=== PATIENT | female | born 1980 | race Two or more races ===

== ENCOUNTER 2024-12-01 14:47 | Emergency (ER) | payer MEDICAID, SELFPAY ==
--- NOTE | 2024-12-01 14:48 | EKG_ITS ---
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
--- NOTE | 2024-12-01 14:48 | XR_ITS ---
Examination: PA chest single view TECHNIQUE: Upright PA chest single view Date and time: December 01, 2024 1524 hours INDICATIONS: Chest pain shortness of breath beginning today. FINDINGS: Normal heart size No pneumonia or pulmonary edema The osseous structures are intact IMPRESSION: No pneumonia or pulmonary edema
--- NOTE | 2024-12-01 14:49 | EDNOTE_ITS ---
ED Chest Pain RME/HPI General Chief Complaint: Chest Pain Stated Complaint: NUMBNESS Time Seen by Provider: 12/01/24 14:48 Source: patient and EMS Arrival date/time: 12/01/24 14:47 Mode of arrival: EMS Limitations: no limitations RME / HPI RME / HPI narrative: Patient is a 44-year-old female with no chronic medical history. She is brought in by EMS after family contacted 911. She states for over 1 month, she has had left sided chest pain, subjective dyspnea, increased life stressors, and bilateral hand paresthesias. She denies any lower leg edema. No syncope. No fevers or chills. She has no other acute complaints. Related Data Previous Rx's ?Medication ?Instructions ?Recorded hydrocodone 5 mg-acetaminophen 325 1 tab PO Q6H pain # 20 tabs //18 mg tablet ([place]) Allergies Allergy/AdvReac Type Severity Reaction Status Date / Time No Known Allergies Allergy Verified 12/01/24 15:11 Review of Systems Review of Systems Systems Reviewed: All systems reviewed, normal except as documented ED Exam General Limitations: Present no limitations General appearance: Present alert and in no apparent distress Head Head exam: Present atraumatic Eye Eye exam: Present normal appearance, PERRL and EOMI ENT ENT exam: Present normal exam, normal oropharynx and mucous membranes moist Neck Neck exam: Present normal inspection, full ROM and trachea midline Chest Chest inspection: Present normal inspection and symmetric chest wall rise Respiratory Respiratory exam: Present normal lung sounds bilaterally Cardiovascular Cardiovascular exam: Present regular rate, normal rhythm and normal heart sounds Abdominal Exam Abdominal exam: Present soft and normal bowel sounds Extremities Exam Extremities exam: Present normal inspection and full ROM Back Exam Back exam: Present normal inspection and full ROM Neurological Exam Neurological exam: Present alert and oriented X3 Psychiatric Psychiatric exam: Present anxious Skin Skin exam: Present warm, dry, intact and normal color Course Quality Measures none Orders Category Date Time Status EKG (ED ONLY) *Do not use* NOW Care 12/01/24 14:48 Completed EKG (ED Only) Stat Exams 12/01/24 14:48 Draft XR chest 1V Stat Exams 12/01/24 14:48 Completed BNP [B-Type Natriuretic Peptide] Stat Lab 12/01/24 15:30 Completed CBC Stat Lab 12/01/24 15:30 Completed CMP [Comprehensive Metabolic Panel] Stat Lab 12/01/24 15:30 Completed Lipase Stat Lab 12/01/24 15:30 Completed Mag [Magnesium] Stat Lab 12/01/24 15:30 Completed Troponin I Stat Lab 12/01/24 15:30 Completed Vital Signs Vital signs: Vital Signs Temperature 98.7 F 12/01/24 14:56 Pulse Rate 100 12/01/24 14:56 Respiratory Rate 18 12/01/24 14:56 Blood Pressure 122/71 12/01/24 14:56 Pulse Oximetry (%) 94 L 12/01/24 14:56 Oxygen Delivery Method Room Air 12/01/24 14:56 Chest Pain MDM Narrative MDM Narrative:: Patient is a 44-year-old female with no chronic medical history. She is brought in by EMS after family contacted 911. She states for over 1 month, she has had left sided chest pain, subjective dyspnea, increased life stressors, and bilateral hand paresthesias. She denies any lower leg edema. No syncope. No fevers or chills. She has no other acute complaints. On exam, patient is nontoxic-appearing and in no visible signs distress. Vital signs are stable. Her workup includes CBC, CMP, troponin, BNP, chest x-ray, and EKG. Workup is essentially unremarkable. Results were discussed with the patient. I do think she can be discharged from the ER at this time. She is asked to follow with her primary clinic. Return as needed for worsening or emergent changes. Patient data External records reviewed:: EMS form Clinical information provided by:: patient and EMS Social determinants that could affect healthcare access:: mental health Patient has the following chronic illnesses:: anxiety How is presenting disease/condition affected by chronic disease/condition?: exacerbated by Evaluation data The following diagnostics were reviewed and interpreted by me:: lab results (CBC, CMP, troponin, BNP are unremarkable), radiology exam(s) (Clear expanded lungs without a mass infiltrate.) and EKG tracing(s) (Sinus tachycardia with no ST changes or dynamic T waves.) Lab and/or radiology exams considered but not ordered:: n/a Interpretation Summary: Unremarkable workup Medications / Prescriptions Medications or Prescriptions considered but not ordered:: n/a Medication administrations:: n/a Consultations Consultation(s) initiated? (list below): No Diagnosis Chest Pain Differential Diagnosis: atypical chest pain and costochondritis Most likely diagnosis given after review of the tests above:: Chest pain, anxiety Admission Indicated Admission indicated?: not indicated Admission Request Was there a request for admission?: No Disposition Plan Disposition Plan: Discharge Discharge Attestation Discharge Attestation: The patient and all family members were given an opportunity to ask questions and understood the discharge instructions. Discharge instructions specifically effects, indications for sooner follow up or return to the emergency department, and the expected course of current diagnosis. Patient condition: Stable Discharge Plan Plan Patient Disposition: HOME (Self Care) Patient condition on transfer: Stable Prescriptions/Referrals Prescriptions/Med Rec: No Action hydrocodone-acetaminophen [[place]] 5-325 mg tablet 1 tab PO Q6H MDD 4 Qty: 20 0RF Referrals: Jonathan Morris MD [Primary Care Provider] - In 1 week Problem List Clinical Impression: Chest pain, Anxiety Patient/Caregiver Discharge Instructions Education Materials: Anxiety Disorders Tx Therapy, ED Chest Pain, Noncardiac Additional Instructions: - Contact your primary clinic this week to schedule close follow-up appointment. - Return here at anytime for any worsening or emergent changes. Print Language: Maltese Stand Alone Forms: Estela Award Info., Patient Portal Info Letter
[2024-12-01 14:56] VITALS: BP 122/71; PULSE 100; RESP 18; TEMP 37.1; O2SAT 94
[2024-12-01 15:07] VITALS: PULSE 104; RESP 18; O2SAT 94; BMI 40.0
[2024-12-01 15:45] LABS: Basophils # (Auto) 0.1 Thou/mm3 (0.0-0.2); Basophils % (Auto) 1 % (0-2.5); Eosinophils # (Auto) 0.4 Thou/mm3 (0.0-0.5); Eosinophils % (Auto) 4 % (0-10); Hematocrit 44.0 % (36.0-46.0); Hemoglobin 14.3 g/dL (12.0-16.0); Immature Granulocytes Auto 0.02 Thou/mm3 (0.00-0.00); Lymphocytes # (Auto) 1.8 Thou/mm3 (1.0-4.8); Lymphocytes % (Auto) 18 % (10-50); Mean Corpuscular HGB Conc 32.5 g/dl (31.0-37.0); Mean Corpuscular Hemoglobin 28.7 pg (25.0-35.0); Mean Corpuscular Volume 88 fL (80-100); Monocytes # (Auto) 0.6 Thou/mm3 (0.0-0.8); Monocytes % (Auto) 6 % (0-12); Neutrophils # (Auto) 7.2 Thou/mm3 (1.8-7.7); Neutrophils % (Auto) 71 % (37-80); Nucleated Red Blood Cell # 0.00 Thou/mm3 (0.00-0.00); Nucleated Red Blood Cell % 0 /100 WBC (0); Platelet Count 246 Thou/mm3 (140-440); RDW Standard Deviation 41.9 fL (36.4-46.3); Red Blood Count 4.99 Miln/mm3 (4.00-5.20); White Blood Count 10.2 Thou/mm3 (3.6-11.0)
[2024-12-01 16:01] LABS: B-Type Natriuretic Peptide < 20 pg/mL (0-100)
[2024-12-01 16:02] LABS: Alanine Aminotransferase 17 U/L (10-49); Albumin, Serum 4.1 gm/dL (3.5-5.0); Albumin/Globulin Ratio 1.4 (1.2-2.2); Alkaline Phosphatase 86 U/L (46-116); Anion Gap 9 (7-16); Aspartate Amino Transferase 22 U/L (0-34); BUN/Creatinine Ratio 10 Ratio (12-20); Bilirubin,Total 0.4 mg/dL (0.3-1.2); Blood Urea Nitrogen 8 mg/dL (9-23); Calcium 9.4 mg/dL (8.3-10.6); Calcium (Corrected) 9.4 mg/dL (8.5-10.1); Carbon Dioxide 27.5 mMol/L (20.0-31.0); Chloride 105 mMol/L (98-107); Creatinine (Component) 0.8 mg/dL (0.6-1.3); Estimated Creatinine Clearance 89.5 mL/min (>60); Globulin 3.0 gm/dL (2.3-3.5); Glucose 100 mg/dL (74-106); Lipase 31 U/L (12-53); Magnesium 1.8 mg/dL (1.6-2.6); Osmolality,Calculated 279 (275-295); Potassium 3.6 mMol/L (3.4-5.1); Sodium 141 mMol/L (136-145); Total Protein 7.1 gm/dL (5.7-8.2); Troponin I < 0.002 ng/mL (0.0-0.045); eGFR > 60 See Note
== END 2024-12-01 17:56 | disposition home or self-care (01) ==
PROVIDERS: Physician Assistant Medical; Emergency Provider Emergency Medicine; PCP Family Medicine
DX: R07.89 Other chest pain (principal); F41.9 Anxiety disorder, unspecified; Z73.3 Stress, not elsewhere classified
CPT/HCPCS: 36415; 71045; 80053; 83690; 83735; 83880; 84484; 85025; 93005; 99283